=== PATIENT | female | born 1935 | race Caucasian/White ===

== ENCOUNTER 2017-11-25 03:56 | Emergency (ER) | payer OTHER ==
[~2017-11-25] VITALS: Ht 157.5 cm; Wt 65.8 kg
[~2017-11-25 03:56] MED LIST: CIPRO500 MG PO; FENOFIBRATE40 MG PO; LEVOTHROID50 MCG PO; LUMIGAN2.5 M1 OP; MACROBID 100 M100 MG PO; METRONIDAZOLE500 MG PO; NEURONTIN300 MG PO; SYMAX DUOT0.375 MG/B PO; SYNTHROID50 MCG PO; TAMS0.4C PO; ZANTAC150 M3 PO; ZOLOFT20 MG/ML PO
[2017-11-25] MEDS ORDERED: NORFLEX100MG PO (06:15)
== END 2017-11-25 06:24 | disposition home or self-care (01) ==
LOC: ER 03:56
DX: G89.11 Acute pain due to trauma (principal); M79.622 Pain in left upper arm

== ENCOUNTER 2017-12-02 21:09 | Emergency (ER) | payer OTHER ==
[~2017-12-02] VITALS: Ht 157.5 cm; Wt 65.8 kg
[~2017-12-02 21:09] MED LIST changes: +NORFLEX100MG PO
== END 2017-12-02 23:02 | disposition home or self-care (01) ==
LOC: ER 21:09
DX: N39.0 Urinary tract infection, site not specified (principal)

== ENCOUNTER 2018-04-06 05:24 | Day surgery (SDC) | payer OTHER ==
[2018-04-06] MEDS ORDERED: PERCOCET 5-3251 EACH PO (14:55)
[2018-04-06] MEDS ORDERED: RECTICARE30 GM TOP (14:56)
== END 2018-04-06 17:54 | disposition home or self-care (01) ==
LOC: CIR.AMB 05:24
DX: D12.8 Benign neoplasm of rectum (principal)

== ENCOUNTER 2018-10-18 18:11 | Emergency (ER) | payer OTHER ==
[~2018-10-18] VITALS: Ht 157.5 cm; Wt 64.0 kg
[~2018-10-18 18:11] MED LIST changes: +PERCOCET 5-3251 EACH PO; +RECTICARE30 GM TOP
[2018-10-18] MEDS ORDERED: LUMIGAN2.5 M1 (18:47)
== END 2018-10-18 21:06 | disposition home or self-care (01) ==
LOC: ER 18:11
DX: N20.0 Calculus of kidney (principal); N39.0 Urinary tract infection, site not specified; M54.89 Other dorsalgia; R30.0 Dysuria

== ENCOUNTER 2018-11-28 04:00 | Emergency (ER) | payer OTHER ==
[~2018-11-28] VITALS: Ht 157.5 cm; Wt 66.7 kg
[~2018-11-28 04:00] MED LIST changes: +LUMIGAN2.5 M1
[2018-11-28] MEDS ORDERED: VISTARIL25 MG PO (07:17)
[2018-11-28] MEDS ORDERED: ULTRACET PO (07:17)
[2018-11-28] MEDS ORDERED: FLONASE ALLERG9.9 ML NASAL (07:17)
[2018-11-28] MEDS ORDERED: URIN D.S. TABL1 EACH PO (07:17)
[2018-11-28] MEDS ORDERED: LORATADINE10 M2 PO (07:17)
[2018-11-28] MEDS ORDERED: CIPRO500 MG PO (07:17)
[2018-11-28] MEDS ORDERED: NEBUSAL4 M1 IH (07:17)
== END 2018-11-28 08:43 | disposition home or self-care (01) ==
LOC: ER 04:00
DX: N39.0 Urinary tract infection, site not specified (principal); B96.29 Other Escherichia coli [E. coli] as the cause of diseases classified elsewhere; R10.31 Right lower quadrant pain

== ENCOUNTER 2018-12-31 19:22 | Emergency (ER) | payer OTHER ==
[~2018-12-31] VITALS: Ht 157.5 cm; Wt 67.1 kg
[~2018-12-31 19:22] MED LIST changes: +FLONASE ALLERG9.9 ML NASAL; +LORATADINE10 M2 PO; +NEBUSAL4 M1 IH; +ULTRACET PO; +URIN D.S. TABL1 EACH PO; +VISTARIL25 MG PO
[2018-12-31] MEDS ORDERED: REFRESH OPTIVE10 ML (19:35)
[2018-12-31] MEDS ORDERED: ZANTAC150 M3 (19:35)
== END 2018-12-31 22:13 | disposition home or self-care (01) ==
LOC: ER 19:22
DX: N39.0 Urinary tract infection, site not specified (principal)

== ENCOUNTER 2022-08-08 17:37 | Emergency (ER) | payer OTHER ==
[~2022-08-08] VITALS: Ht 167.6 cm; Wt 61.2 kg
[~2022-08-08 17:37] MED LIST changes: +REFRESH OPTIVE10 ML; +ZANTAC150 M3
[2022-08-08] MEDS ORDERED: PANTOPRAZOLE SO40 MG PO (17:53)
[2022-08-08] MEDS ORDERED: TRICOR145 MG PO (17:53)
[2022-08-08] MEDS ORDERED: FAMOTIDINE20 MG PO (17:54)
[2022-08-08] MEDS ORDERED: ZOLOFT50 MG PO (17:55)
[2022-08-08] MEDS ORDERED: MYRBETRIQ25 MG PO (17:56)
[2022-08-08] MEDS ORDERED: CLIMARA1 EACH TD (17:57)
== END 2022-08-08 21:12 | disposition home or self-care (01) ==
LOC: ER 17:37
DX: M54.9 Dorsalgia, unspecified (principal); M25.552 Pain in left hip; Z91.041 Radiographic dye allergy status; Z88.6 Allergy status to analgesic agent; Z88.0 Allergy status to penicillin; Z91.013 Allergy to seafood; F03.90 Unspecified dementia, unspecified severity, without behavioral disturbance, psychotic disturbance, mood disturbance, and anxiety; E03.9 Hypothyroidism, unspecified; H40.9 Unspecified glaucoma; Z96.698 Presence of other orthopedic joint implants

== ENCOUNTER 2023-02-07 18:07 | Emergency (ER) | payer OTHER ==
[~2023-02-07] VITALS: Ht 167.6 cm; Wt 60.8 kg
[~2023-02-07 18:07] MED LIST changes: +CLIMARA1 EACH TD; +FAMOTIDINE20 MG PO; +MYRBETRIQ25 MG PO; +PANTOPRAZOLE SO40 MG PO; +TRICOR145 MG PO; +ZOLOFT50 MG PO
[2023-02-07] MEDS ORDERED: METHENAMINE HIPP1 GM (19:16)
[2023-02-07] MEDS ORDERED: NORFLEX100MG PO (22:32)
== END 2023-02-07 22:42 | disposition home or self-care (01) ==
LOC: ER 18:07
DX: M54.50 Low back pain, unspecified (principal); M54.2 Cervicalgia; Z88.6 Allergy status to analgesic agent; Z88.0 Allergy status to penicillin; Z91.013 Allergy to seafood; E03.9 Hypothyroidism, unspecified; W18.39XA Other fall on same level, initial encounter; Y93.F1 Activity, caregiving, bathing; Y92.012 Bathroom of single-family (private) house as the place of occurrence of the external cause
CPT/HCPCS: 72040; 72070; 72100; 96372; 99284; J2360